=== PATIENT | female | born 1950 | race Caucasian/White ===

== ENCOUNTER 2017-06-14 16:27 | Emergency (ER) | payer OTHER, BC ==
--- NOTE | 2017-06-14 17:05 | EDPHY ---
H & P Smoking Status: Never smoked Time Seen by Provider: 06/14/17 16:34 HPI/ROS: CHIEF COMPLAINT: Facial injury HISTORY OF PRESENT ILLNESS: 67-year-old female presents to the emergency department with lip laceration. The patient was crossing the street just prior to arrival caring a box and she was not looking and missed a step and tripped and fell hitting her face on the pavement. She did not lose consciousness. She denies a headache. She complains of some mild neck pain. No previous history of neck injury. She denies paresthesias in her upper lower extremities. No visual symptoms. She has some mild pain associated with her upper front teeth. She denies malocclusion. Denies chest pain or difficulty breathing. Denies any presyncopal symptoms prior to her fall. Denies injury to her lower extremities or upper extremities bilaterally. REVIEW OF SYSTEMS: Constitutional: No fever, no chills. Eyes: No double or blurry vision. ENT: No sore throat. Respiratory: No cough, no shortness of breath. Cardiac: No chest pain. Gastrointestinal: No abdominal pain, vomiting or diarrhea. Genitourinary: No dysuria. Musculoskeletal: Neck pain as above. No back pain. Skin: Lip laceration as above. No rashes. Neurological: No headache. (Nannette Gann) Past Medical/Surgical History: Orthopedic surgery, skin cancer (Nannette Gann) Social History: (Nannette Gann) Physical Exam: General Appearance: Alert, no distress. Mentating normally and answering questions appropriately. Superficial abrasion to the anterior aspect of the nose. Eyes: Pupils equal and round. Extraocular motions are all intact. ENT: Mouth: Mucous membranes moist. No epistaxis currently. No dental injury or malocclusion. There is a 1.5 cm laceration to the buccal mucosa of the lower lip. Not gaping. No evidence of retained foreign body. There is also a 1.5 cm flap laceration to the anterior aspect of the left lower lip that does not cross the vermilion border. No facial bone tenderness. Respiratory: No wheezing, rhonchi, or rales, lungs are clear to auscultation. Cardiovascular: Regular rate and rhythm. Gastrointestinal: Abdomen is soft and nontender, no masses, no rebound or guarding, bowel sounds normal. Neurological: Alert and oriented x 3, cranial nerves II through XII grossly intact Skin: Lip laceration as above. Warm and dry, no rashes. Musculoskeletal: Nontender to palpate along the cervical, thoracic or lumbar spine. Neck is supple. Extremities: Full range of motion and no peripheral edema. Psychiatric: Patient is oriented X 3, there is no agitation. (Nannette Gann) Constitutional: Initial Vital Signs Temperature (C) 36.6 C 06/14/17 16:29 Heart Rate 80 06/14/17 16:29 Respiratory Rate 18 06/14/17 16:29 Blood Pressure 127/91 H 06/14/17 16:29 O2 Sat (%) 96 06/14/17 16:29 O2 Delivery Mode Room Air Allergies/Adverse Reactions: No Known Allergies Allergy (Verified 06/14/17 16:29) Home Medications: Medication Instructions Recorded NK [No Known Home Meds] 06/14/17 Medical Decision Making Procedures: Laceration repair. Verbal consent was obtained from the patient. The 1.5 cm laceration on the left lower lip was anesthetized using 1% lidocaine with epinephrine. The wound was irrigated with saline, draped and explored to its base with a gloved finger. There were no deep structures involved. The wound was repaired with 6 0 Prolene, 6 sutures. The wound repair was complex. The procedure was performed by myself. (Nannette Gann) ED Course/Re-evaluation: 67-year-old female presents to the emergency department with lip laceration. The wound was repaired, see procedure note. Patient also has some mild diffuse pain with palpation along cervical spine. CT imaging of cervical spine has been ordered and is pending. Patient believes her tetanus shot is current. CT imaging of the cervical spine was normal. No fractures. (Nannette Gann) Differential Diagnosis: Including but not limited to fracture, dislocation, contusion, sprain, head injury, concussion, skull fracture, intraparenchymal contusion, subarachnoid, subdural and epidural hematoma. (Nannette Gann) Other Provider: PHYSICIAN DOCUMENTATION: The patient was evaluated and managed by the Physician Medical Device Sales Consultant and myself. I have reviewed the chart and agree with the findings and plan of care as documented. In addition, I examined the patient myself at 1752. History confirmed as mechanical fall not syncope. Physical findings as follows: Alert, normal speech, normal movement in all [address] cervical spine reported to me by Parvin at 5:49 p.m. as negative for traumatic injury. Plan for lip laceration repair, discharge with wound precautions. I am the secondary supervising physician. (Cem Lucas) Departure - Departure Disposition: Home, Routine, Self-Care Clinical Impression: Lip laceration Qualifiers: Encounter type: initial encounter Qualified Code(s): S01.511A - Laceration without foreign body of lip, initial encounter Cervical strain Qualifiers: Encounter type: initial encounter Qualified Code(s): S16.1XXA - Strain of muscle, fascia and tendon at neck level, initial encounter Condition: Good Instructions: Cervical Strain (ED), Care For Your Stitches (ED), Laceration (ED ), Acute Wounds (ED) Additional Instructions: Wound Care Follow-Up: Removal of sutures in 7 days. Suture removal is complimentary in uncomplicated cases. Infection or abnormal findings would require reevaluation by the MD. In that case, you may be billed. Ibuprofen 600mg every 8 hours for pain as directed. Referrals: MARY ANNE COOPER [Primary Care Provider] - As per Instructions
[2017-06-14 18:08] VITALS: BP 146/96; PULSE 75; RESP 169; TEMP 98.2; O2SAT 96
== END 2017-06-14 18:08 | disposition home or self-care (01) ==
PROC: 0CQ4XZZ Repair Buccal Mucosa, External Approach (ICD-10-PCS; principal; 2017-06-14)
DX: S01.511A Laceration without foreign body of lip, initial encounter (principal); S16.1XXA Strain of muscle, fascia and tendon at neck level, initial encounter; Z85.828 Personal history of other malignant neoplasm of skin; W01.198A Fall on same level from slipping, tripping and stumbling with subsequent striking against other object, initial encounter; Y92.410 Unspecified street and highway as the place of occurrence of the external cause; Y93.89 Activity, other specified

== ENCOUNTER 2018-03-13 15:29 | Emergency (ER) | payer OTHER, BC ==
[2018-03-13 15:38] VITALS: BP 99/80
--- NOTE | 2018-03-13 15:40 | EDPHY ---
H & P Stated Complaint: CUT L 5TH DIGIT TIP WITH GARDENING MEAGHAN Time Seen by Provider: 03/13/18 15:39 HPI/ROS: HPI: A 68-year-old female who presents with Chief Complaint: CUT L 5TH DIGIT TIP WITH GARDENING MEAGHAN Location: Left little finger Quality: Laceration Duration: 3 hr prior to arrival Signs and Symptoms: + bleeding, no radiation, no numbness, no weakness, no tingling, no incontinence, no decreased range of motion, no swelling, + pain, no fever Timing: Acute Severity: Mild Context: Patient is right-hand dominant, presents with accidentally cutting the tip of her left pinky with garden meaghan approximately 3 hr ago. She says she washed out with soap and water and poured hydrogen peroxide on it she then placed a Band-Aid. She went to work and her employer looked at and thought that she may need stitches. So she came to the emergency room for further evaluation. Reports tetanus is up-to-date. Denies radiation, weakness, decreased range of motion. Modifying Factors: Local wound care and direct pressure Comment: ROS: A comprehensive 10 system review of systems is otherwise negative aside from elements mentioned in the history of present illness. MEDICAL/SURGICAL/SOCIAL HISTORY: Medical/surgical history: right elbow fx; L knee replacement; wisdom teeth extraction; PID; skin CA removal Social history: Never smoked. Denies drug or alcohol use. CONSTITUTIONAL: Elderly white female who appears younger than stated age, awake and alert, no obvious distress HEENT: Atraumatic and normocephalic. NECK: supple EXTREMITIES: 2/2 pulses, strength 5/5, tip of left little finger shows approximately 1.5 cm, superficial, linear, laceration on the finger pad-no active bleeding. DIP/PIP/MCP flexion/extension intact with good light touch sensation. no deformities, no clubbing, no cyanosis or edema. NEUROLOGICAL: no focal neuro deficits. GCS 15. Light touch sensation intact. SKIN: Warm and dry, no erythema. no rash. Good capillary refill. Source: Patient Exam Limitations: No limitations - Personal History Current Tetanus Diphtheria and Acellular Pertussis (TDAP): Yes Tetanus Vaccine Date: <10yrs - Medical/Surgical History Hx Asthma: No Hx Chronic Respiratory Disease: No Hx Diabetes: No Hx Cardiac Disease: No Hx Renal Disease: No Hx Cirrhosis: No Hx Alcoholism: No Hx HIV/AIDS: No Hx Splenectomy or Spleen Trauma: No Other PMH: right elbow fx; L knee replacement; wisdom teeth extraction; PID; skin CA removal; - Social History Smoking Status: Never smoked Constitutional: Initial Vital Signs Temperature (C) 36.9 C 03/13/18 15:35 Heart Rate 71 03/13/18 15:35 Respiratory Rate 18 03/13/18 15:35 Blood Pressure 99/80 L 03/13/18 15:35 O2 Sat (%) 94 03/13/18 15:35 O2 Delivery Mode Room Air Allergies/Adverse Reactions: No Known Allergies Allergy (Verified 03/13/18 15:35) Home Medications: Medication Instructions Recorded NK [No Known Home Meds] 06/14/17 Medical Decision Making Procedures: Procedure: Laceration repair. Verbal consent was obtained from the patient. The 1/2 cm, superficial, linear, simple laceration on the tip of the left little finger was anesthetized in the usual fashion using 2 mL of 1% lidocaine without epinephrine. The wound was irrigated, draped and explored to its base with a gloved finger. There were no deep structures involved. No tendon injury was identified. The wound was repaired with Dermabond. Hemostasis was achieved and patient tolerated procedure well. Xeroform and tube gauze applied. The procedure was performed by myself. ED Course/Re-evaluation: Tetanus is current. Local anesthesia provided; irrigated copiously No signs of neurovascular compromise/tenting of skin/compartment syndrome/ extremities and joints examined above and below area of concern and are neurovascularly intact. This patient was seen under the supervision of my secondary supervising physician. I evaluated care for this patient independently. Discussed this patient with Dr. Garland. Differential Diagnosis: Differential diagnosis includes but is not limited to laceration, nerve injury, tendon injury, nail involvement. Departure - Departure Disposition: Home, Routine, Self-Care Clinical Impression: Laceration of left little finger without foreign body without damage to nail Qualifiers: Encounter type: initial encounter Qualified Code(s): S61.217A - Laceration without foreign body of left little finger without damage to nail, initial encounter Condition: Good Instructions: Laceration (ED), Skin Adhesive Care (ED) Additional Instructions: Keep the dressing dry and in place for 48 hours. After 48 hours, you may remove the dressing; wash the site daily with mild soap and water; then pat dry. Apply topical antibiotic ointment and clean sterile dressing daily until fully healed. Allow the skin glue to slowly dissolve on its own. Do not pick it off. Return to the ER immediately if you experience new or worsening pain, discoloration, numbness, tingling, or any other symptoms that concern you. Referrals: LAKSHMI JOHNSON [Primary Care Provider] - Follow Up Only If Needed
[2018-03-13] MEDS ORDERED: SKIN ADHESIVE (DERMABOND) 1 EACH TP ONE ×2 (15:44→16:01)
== END 2018-03-13 16:19 | disposition home or self-care (01) ==
PROC: 0HQGXZZ Repair Left Hand Skin, External Approach (ICD-10-PCS; principal; 2018-03-13)
DX: S61.217A Laceration without foreign body of left little finger without damage to nail, initial encounter (principal); W27.2XXA Contact with scissors, initial encounter; Y93.H2 Activity, gardening and landscaping

== ENCOUNTER → 2018-04-22 | Outpatient (CLI) | payer OTHER, BC | LOC: FIMAGING 15:29 | PROVIDERS: ATTEND Family Medicine | DX: M51.36 Other intervertebral disc degeneration, lumbar region (principal); M43.16 Spondylolisthesis, lumbar region; I72.8 Aneurysm of other specified arteries; M51.34 Other intervertebral disc degeneration, thoracic region; M54.2 Cervicalgia ==

== ENCOUNTER → 2018-07-28 | Outpatient (CLI) | payer OTHER, BC ==
[~2018-07-28] MED LIST: IOPAMIDOL (ISOVUE-300) 100 ML BTL ONE
== END ==
LOC: FIMAGING 15:24
PROVIDERS: ATTEND Family Medicine
DX: I72.8 Aneurysm of other specified arteries (principal); R91.8 Other nonspecific abnormal finding of lung field
CPT/HCPCS: 74175; Q9967; 82565-PO

== ENCOUNTER → 2018-08-08 | Outpatient (CLI) | payer OTHER, BC | LOC: FIMAGING 15:04 | PROVIDERS: ATTEND Family Medicine | DX: R92.8 Other abnormal and inconclusive findings on diagnostic imaging of breast (principal) ==